=== PATIENT | male | born 2005 | race Two or more races ===

== ENCOUNTER 2024-11-10 22:53 | Emergency (ER) | payer SELFPAY ==
[2024-11-10 22:57] VITALS: BMI 25.7
[2024-11-10 23:11] VITALS: BP 134/88; PULSE 78; RESP 18; TEMP 36.6; O2SAT 99
[2024-11-10] MEDS: DEXAMETHASONE SOD PHOS INJ 10 MG/ML VIAL PO (23:36)
--- NOTE | 2024-11-11 00:26 | EDNOTE_ITS ---
ED Allergic Reaction RME/HPI General Chief complaint: Skin/Abscess/Foreign Body Stated complaint: ALLERGIC REACTION Time Seen by Provider: 11/10/24 23:27 Arrival date/time: 11/10/24 22:53 19M with no significant PMH presents to ED with 1 day of generalized itchy rash. Patient denies new foods, meds, hygiene products, and environmental exposures, as well as SOB and throat swelling. Limitations: no limitations Related Data Previous Rx's ?Medication ?Instructions ?Recorded hydrocortisone 2.5 % topical cream 1 applic topical BI D PRN itching 11/10/24 #30 grams prednisone 20 mg tablet 20 mg PO BID 3 days #6 tabs 11/10/24 Allergies Allergy/AdvReac Type Severity Reaction Status Date / Time No Known Allergies Allergy Verified 11/10/24 23:01 Review of Systems Review of Systems Systems Reviewed: All systems reviewed, normal except as documented Constitutional Constitutional: Reports system reviewed and no additional complaints, except as documented, Denies fever(s) and Denies headache(s) ENT Ears, Nose, Mouth, and Throat: Denies disequilibrium and Denies headache(s) Cardiovascular Cardiovascular: Reports system reviewed and no additional complaints, except as documented, Denies chest pain and Denies dyspnea Respiratory Respiratory: Reports system reviewed and no additional complaints, except as documented, Denies cough and Denies dyspnea Gastrointestinal Gastrointestinal: Reports system reviewed and no additional complaints, except as documented, Denies abdominal pain, Denies nausea and Denies vomiting Integumentary/Breasts Skin/Breast: Reports as per HPI, Reports pruritus and Reports rash Neurologic Neurologic: Reports system reviewed and no additional complaints, except as documented, Denies confusion, Denies disequilibrium and Denies headache(s) Psychiatric Psychiatric: Denies confusion Past Medical History Social History SMOKING STATUS: Never smoker ED Exam General Limitations: Present no limitations General appearance: Present alert and in no apparent distress Head Head exam: Present atraumatic Eye Eye exam: Present normal appearance, PERRL and EOMI ENT ENT exam: Present normal exam, normal oropharynx and mucous membranes moist Neck Neck exam: Present normal inspection, full ROM and trachea midline Chest Chest inspection: Present normal inspection and symmetric chest wall rise Respiratory Respiratory exam: Present normal lung sounds bilaterally Cardiovascular Cardiovascular exam: Present regular rate, normal rhythm and normal heart sounds Abdominal Exam Abdominal exam: Present soft and normal bowel sounds Extremities Exam Extremities exam: Present normal inspection and full ROM Back Exam Back exam: Present normal inspection and full ROM Neurological Exam Neurological exam: Present alert, oriented X3 and CN II-XII intact Psychiatric Psychiatric exam: Present normal affect and normal mood Skin Skin exam: Present warm, dry, intact, normal color and rash Course Quality Measures none Orders Category Date Time Status Dexamethasone Inj [Decadron Inj] Med 11/10/24 23:28 Discontinued 10 mg PO X1 ONE DiphenhydrAMINE [Benadryl] Med 11/10/24 23:28 Discontinued 25 mg PO X1 ONE Vital Signs Vital signs: Vital Signs Temperature 97.9 F 11/10/24 23:11 Pulse Rate 78 11/10/24 23:11 Respiratory Rate 18 11/10/24 23:11 Blood Pressure 134/88 H 11/10/24 23:11 Pulse Oximetry (%) 99 11/10/24 23:11 Oxygen Delivery Method Room Air 11/10/24 23:11 O2 at 99% on RA and WNLs Allergic Reaction MDM Narrative MDM Narrative:: 19M with no significant PMH presents to ED with 1 day of generalized itchy rash. Patient denies new foods, meds, hygiene products, and environmental exposures, as well as SOB and throat swelling. Physical exam reveals generalized urticarial rash. Normal WOB. Speech normal. Patient is afebrile, calm, and alert. Meds and residential child care counselor given. Patient did not want to wait for observation period. Patient data External records reviewed:: None Clinical information provided by:: patient Social determinants that could affect healthcare access:: none Patient has the following chronic illnesses:: none How is presenting disease/condition affected by chronic disease/condition?: no chronic disease Evaluation data The following diagnostics were reviewed and interpreted by me:: other (specify) (none) Lab and/or radiology exams considered but not ordered:: not rodered Interpretation Summary: n/a Medications / Prescriptions Medications or Prescriptions considered but not ordered:: ordered Medication administrations:: Medication Administration History Discontinued Medications Dexamethasone Sodium Phosphate (Dexamethasone Sod Phos Inj 10 Mg/Ml Vial) 10 mg PO X1 ONE Stop: 11/10/24 23:29 Last Admin: 11/10/24 23:36 Dose: 10 mg Documented By: OA Diphenhydramine HCl (Diphenhydramine 25 Mg Capsule) 25 mg PO X1 ONE Stop: 11/10/24 23:29 Last Admin: 11/10/24 23:36 Dose: 25 mg Documented By: CHRISTIANO above Consultations Consultation(s) initiated? (list below): No Diagnosis Differential Diagnosis allergic reaction: anaphylaxis, allergic reaction, angioedema, contact dermatitis, adverse reaction to drug, viral enanthem and urticaria Most likely diagnosis given after review of the tests above:: urticaria Admission Indicated Admission indicated?: not indicated Admission Request Was there a request for admission?: No Disposition Plan Disposition Plan: Discharge Discharge Attestation Discharge Attestation: The patient and all family members were given an opportunity to ask questions and understood the discharge instructions. Discharge instructions specifically effects, indications for sooner follow up or return to the emergency department, and the expected course of current diagnosis. Patient condition: Stable Discharge Plan Plan Patient Disposition: HOME (Self Care) Discharge Disposition comment: Stable Prescriptions/Referrals Prescriptions/Med Rec: New hydrocortisone 2.5 % cream 1 applic topical BID PRN (Reason: itching) Qty: 30 0RF prednisone 20 mg tablet 20 mg PO BID 3 Days Qty: 6 0RF Problem List Clinical Impression: Urticaria Patient/Caregiver Discharge Instructions Education Materials: ED Hives (Adult) Additional Instructions: Please follow-up with PCP within 24-48 hours and return immediately if symptoms worsen. Take OTC antihistamine as needed until symptoms resolve. Finish entire steroid course. Wash all of the clothes you wore today in hot water. Print Language: Vietnamese Stand Alone Forms: Patient Portal Info Letter DINORAH/DENICE Supervising Physician DINORAH/DENICE Supervising Physician: Dr. Curran
== END 2024-11-10 23:48 | disposition home or self-care (01) ==
LOC: SERX 23:44
PROVIDERS: Emergency Provider Emergency Medicine
DX: L50.9 Urticaria, unspecified (principal)
CPT/HCPCS: 99282; J1100; A9270